=== PATIENT | male | born 1960 | race Caucasian/White ===

== ENCOUNTER → 2016-09-13 | Outpatient (CLI) | payer BC ==
[~2016-09-13] MED LIST: ACET-1138 PO; ASPEC81 PO; ATOR-26 PO; CIPR-255 PO; CLB200 PO; IRBE1TAB50 PO; MBC75; METR500T PO; MULT-845 PO; OMEG500C2 PO; ONDA4TAB10 SL; OXYSR10 PO; PRLSR20 PO; RXC5 PO
[2016-09-13 16:59] LABS: BLOOD UREA NITROGEN 17 mg/dl (7-18); BUN/CREATININE RATIO 20.3 (10-20); CREATININE 0.82 mg/dl (0.60-1.40)
[2016-09-13 19:13] LABS: LYME DISEASE AB IGG NEG (NEG); LYME DISEASE AB IGM NEG (NEG)
== END | disposition home or self-care (01) ==
LOC: C.LABBFT 15:46
PROVIDERS: ATTEND Urology
DX: R31.9 Hematuria, unspecified (principal); N28.9 Disorder of kidney and ureter, unspecified; T14.8 Other injury of unspecified body region; W57.XXXA Bitten or stung by nonvenomous insect and other nonvenomous arthropods, initial encounter

== ENCOUNTER → 2016-09-24 | Outpatient (CLI) | payer BC ==
[~2016-09-24] MED LIST changes: +OPTIRAY 320 IV PRN
--- NOTE | 2016-09-24 16:24 | DIAGNOSTIC IMAGING REPORT ---
ABDOMEN AND PELVIS CT EXAMINATION PRE AND POST INTRAVENOUS CONTRAST CT DOSE: 2134.12 mGycm HISTORY: Renal lesion C67.9 Bladder [id number] Renal lesion urogram-delayed imaging TECHNIQUE: Multiaxial CT images of the abdomen and pelvis were performed pre and post intravenous contrast enhancement. COMPARISON STUDY: None. FINDINGS: Lung bases remain clear. Hepatic cysts are stable. Pancreas and right kidney appear unremarkable. The potential filling defect upper pole left kidney appears to be unchanged. Reconstructed images as well as delayed images suggest this potentially relates to a compound calyx with interposed renal parenchyma. Enhancement characteristics appear generally uniform. There is been no change in size of this is compared to the prior study with maximum current dimensions again unchanged 6 mm. There is no significant abdominal or pelvic adenopathy. Bladder is midline. There are no significant filling defects. IMPRESSION: 1. No major change from the prior study. 2. Small filling defect versus compound calyx is stable with no interval change. Reconstructed images in multiple projections suggest this potentially relates to an anatomic variation and compound calyx 3. Remainder the study remain stable and unchanged. There are no new or interval findings. 4. Repeat study in 9-12 months is suggested, or as clinically indicated.. Electronically signed by: Nura Hobbs M.D. 09/24/2016 4:23 PM Dictated Date/Time: 09/24/2016 4:15 PM
== END | disposition home or self-care (01) ==
LOC: C.CTS 15:31
PROVIDERS: ATTEND Urology
DX: C67.9 Malignant neoplasm of bladder, unspecified (principal); N28.9 Disorder of kidney and ureter, unspecified

== ENCOUNTER 2017-01-01 12:30 | Emergency (ER) | payer BC ==
[~2017-01-01] VITALS: Ht 175.3 cm; Wt 112.9 kg
[~2017-01-01 12:30] MED LIST changes: -CIPR-255 PO; -MBC75; -METR500T PO; -ONDA4TAB10 SL; -OPTIRAY 320 IV PRN
[2017-01-01 12:36] VITALS: TEMP 36.8; Ht 175.3 cm; Wt 112.9 kg
[2017-01-01] MEDS ORDERED: SODIUM CHLORIDE 0.9% 1000ML 1,000 ML IV STA (13:24)
[2017-01-01] MEDS ORDERED: MoRPHine SULFATE 4 MG/ML 1 ML CARP\\VIAL IV STA (13:24)
[2017-01-01] MEDS ORDERED: ONDANSETRON INJ 2 MG/ML 2 ML VIAL IV STA (13:24)
--- NOTE | 2017-01-01 13:24 | EMERGENCY ROOM VISIT NOTE ---
History Report prepared by Kalina: Marcos Vera Under the Supervision of: Dr. Robert Allison M.D. First contact with patient: 12:48 Chief Complaint: ABDOMINAL PAIN Stated Complaint: PAIN IN LOWER SIDE Nursing Triage Summary: Left sided abd pain. Nausea. Had a fever last evening and diarrhea this a.m. See orange call in note. History of Present Illness The patient is a 56 year old white male with a past medical history of HTN, HLD , arthritis, knee replacement, splenectomy, and umbilical hernia who presents to the ED with a cc of intermittent sharp LLQ abdominal pain beginning last night. Positive fevers of 99, chills, nausea, and diarrhea. Negative penis pain , scrotum pain, hematochezia, urinary symptoms, vomiting, cough, congestion, alcohol use, tobacco use, or drug use. The pain is worsened with standing, and it is improved with laying and sitting down. He states the pain started last night after golfing. He had a BM this morning. Source of History: patient Onset: last night Position: abdomen (LLQ) Quality: sharp Timing: intermittent Modifying Factors (Worsening): other (standing) Modifying Factors (Relieving): other (sitting or laying down) Associated Symptoms: + fevers, + chills, + nausea, + diarrhea, No cough, No vomiting, No hematochezia, No urinary symptoms Review of Systems See HPI for pertinent positives and negatives. A total of ten systems were reviewed and were otherwise negative. Past Medical & Surgical Medical Problems: (1) Arthritis of left knee (2) Diverticulitis (3) DJD (degenerative joint disease) (4) High cholesterol (5) Pneumonia Surgical Problems: (1) H/O splenectomy Family History Heart disease Social History Smoking Status: Never Smoker Marital Status: Housing Status: lives with family Occupation Status: employed Current/Historical Medications Scheduled Acetaminophen (Tylenol Extra Strength), 1,000 MG PO Q8H Atorvastatin (Lipitor), 80 MG PO QPM Ciprofloxacin Hcl (Cipro), 500 MG PO BID Irbesartan (Irbesartan), 300 MG PO QAM Metronidazole (Flagyl), 500 MG PO TID Multiple Vitamins W/ Minerals (Centrum Silver Adult 50+), 1 TAB PO QAM [place]-3 Fatty Acids (Fish Oil), 1,200 MG PO QAM Omeprazole (Prilosec), 20 MG PO QAM Ondasetron Odt (Zofran Odt), 4 MG SL Q6H Miscellaneous Medications Meloxicam (Meloxicam), 10 MG Allergies Coded Allergies: No Known Allergies (Verified , 01/01/17) Physical Exam Vital Signs Date Time Temp Pulse Resp B/P (MAP) Pulse Ox O2 Delivery O2 Flow Rate FiO2 01/01/17 16:29 88 18 132/89 98 01/01/17 14:33 94 16 144/82 98 Room Air 01/01/17 12:36 36.8 105 18 128/84 95 Room Air Physical Exam GENERAL: Awake, alert, well-appearing, NAD. Obese HENT: Normocephalic, atraumatic. EYES: Normal conjunctiva. Sclera non-icteric. NECK: Supple. No nuchal rigidity. FROM. RESPIRATORY: CTAB, no rhonchi, wheezing, crackles CARDIAC: RRR, no MRG ABDOMEN: LLQ TTP without guarding or rebound. No obvious bulge from abdomen. Soft, ND, BS+ MSK: No CVA TTP. No reproducible hip, thigh, or knee pain. No chest wall TTP, no LE edema : No penile pain. Mild left testicular pain w/o masses, bulges, swelling, edema, erythema, or calor. NEURO: Negative straight leg raise in on the left side. GCS 15, CN 2-12 intact, moves all 4s on command SKIN: No rash or jaundice noted. Medical Decision & Procedures ER Provider Diagnostic Interpretation: Radiology results as stated below per my review and radiologist interpretation: ABD/PELVIS IV CONTRAST ONLY CT DOSE: 1369.85 mGy.cm HISTORY: Pain LLQ pain, prior splenectomy/umbilical hernia TECHNIQUE: Multiaxial CT images of the abdomen and pelvis were performed following the use of intravenous contrast. A dose lowering technique was utilized adhering to the principles of ALARA. COMPARISON STUDY: 09/24/2016 FINDINGS: The lung bases are clear. The liver, spleen, gallbladder, pancreas, kidneys, and adrenal glands are within normal limits. No bowel wall thickening or obstruction. The pelvic organs are unremarkable. No suspicious lytic or blastic osseous lesions. 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 No further follow-up is felt to be indicated. Several small hepatic cysts are unchanged. Bowel pattern is nonobstructive. Small periumbilical hernia possibly containing a small nonobstructive adhesion. Bladder is midline. No adenopathy within the abdomen and pelvis or inguinal region. No evidence for abscess collection or obstruction. Small component of acute diverticulitis juncture descending and proximal sigmoid colon. IMPRESSION: Stable exam with no change in the prior study. 2. 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 3. Several small stable hepatic cysts. 4. No new, progressive, or interval finding. 5. Note is made of a minimal component of low-grade diverticulitis juncture descending and sigmoid colonic regions. Mild pericolonic infiltrative change. No evidence for abscess collection or obstruction. The above report was generated using voice recognition software. It may contain grammatical, syntax or spelling errors. Electronically signed by: Nura Hobbs M.D. 01/01/2017 3:00 PM Dictated Date/Time: 01/01/2017 2:52 PM Laboratory Results 01/01/17 12:50 Red Blood Count 5.49, Mean Corpuscular Volume 91.3, Mean Corpuscular Hemoglobin 32.2, Mean Corpuscular Hemoglobin Concent 35.3, Mean Platelet Volume 9.3, Neutrophils (%) (Auto) 58.7, Lymphocytes (%) (Auto) 24.7, Monocytes (%) (Auto) 15.0, Eosinophils (%) (Auto) 0.7, Basophils (%) (Auto) 0.3, Neutrophils # (Auto ) 8.65, Lymphocytes # (Auto) 3.64, Monocytes # (Auto) 2.21, Eosinophils # (Auto ) 0.10, Basophils # (Auto) 0.04 01/01/17 12:50 Test 01/01/17 12:50 01/01/17 14:55 White Blood Count 14.73 K/uL (4.8-10.8) Red Blood Count 5.49 M/uL (4.7-6.1) Hemoglobin 17.7 g/dL (14.0-18.0) Hematocrit 50.1 % (42-52) Mean Corpuscular Volume 91.3 fL (80-100) Mean Corpuscular Hemoglobin 32.2 pg (25-34) Mean Corpuscular Hemoglobin Concent 35.3 g/dl (32-36) Platelet Count 318 K/uL (130-400) Mean Platelet Volume 9.3 fL (7.4-10.4) Neutrophils (%) (Auto) 58.7 % Lymphocytes (%) (Auto) 24.7 % Monocytes (%) (Auto) 15.0 % Eosinophils (%) (Auto) 0.7 % Basophils (%) (Auto) 0.3 % Neutrophils # (Auto) 8.65 K/uL (1.4-6.5) Lymphocytes # (Auto) 3.64 K/uL (1.2-3.4) Monocytes # (Auto) 2.21 K/uL (0.11-0.59) Eosinophils # (Auto) 0.10 K/uL (0-0.5) Basophils # (Auto) 0.04 K/uL (0-0.2) RDW Standard Deviation 48.5 fL (36.4-46.3) RDW Coefficient of Variation 14.3 % (11.5-14.5) Immature Granulocyte % (Auto) 0.6 % Immature Granulocyte # (Auto) 0.09 K/uL (0.00-0.02) Anion Gap 7.0 mmol/L (3-11) Est Creatinine Clear Calc Drug Dose 129.6 ml/min Estimated GFR () 115.9 Estimated GFR (Non- 100.0 BUN/Creatinine Ratio 18.7 (10-20) Calcium Level 9.2 mg/dl (8.5-10.1) Total Bilirubin 1.2 mg/dl (0.2-1) Direct Bilirubin 0.2 mg/dl (0-0.2) Aspartate Amino Transf (AST/SGOT) 22 U/L (15-37) Alanine Aminotransferase (ALT/SGPT) 46 U/L (12-78) Alkaline Phosphatase 148 U/L (45-117) Total Protein 7.7 gm/dl (6.4-8.2) Albumin 3.8 gm/dl (3.4-5.0) Lipase 143 U/L (73-393) Urine Color YELLOW Urine Appearance CLEAR (CLEAR) Urine pH 7.5 (4.5-7.5) Urine Specific [place] 1.036 (1.000-1.030) Urine Protein NEG (NEG) Urine Glucose (UA) NEG (NEG) Urine Ketones NEG (NEG) Urine Occult Blood NEG (NEG) Urine Nitrite NEG (NEG) Urine Bilirubin NEG (NEG) Urine Urobilinogen NEG (NEG) Urine Leukocyte Esterase NEG (NEG) Laboratory results reviewed by me Medications Administered Medications (Trade) Dose Ordered Sig/Sal Route Start Time Stop Time Status Last Admin Dose Admin Sodium Chloride 1,000 ml @ 999 mls/hr Q1H1M STAT IV 01/01/17 13:24 01/01/17 14:24 DC 01/01/17 13:46 999 MLS/HR Metronidazole (Flagyl Tab) 500 mg NOW STAT PO 01/01/17 15:16 01/01/17 15:18 DC 01/01/17 16:17 500 MG Ciprofloxacin (Cipro Tab) 500 mg NOW STAT PO 01/01/17 15:16 01/01/17 15:18 DC 01/01/17 16:17 500 MG ED Course 1310: The patient was evaluated in room B6. A complete history and physical exam was performed. 1522: I reevaluated the patient. Discussed results and discharge instructions: He verbalized understanding and agreement. The patient is ready for discharge. Medical Decision The patient is a 56 year old white male with a past medical history of HTN, HLD , arthritis, knee replacement, splenectomy, and umbilical hernia who presents to the ED with a cc of intermittent sharp LLQ abdominal pain beginning last night. Positive fevers of 99, chills, nausea, and diarrhea. Negative penis pain , scrotum pain, hematochezia, urinary symptoms, vomiting, cough, congestion, alcohol use, tobacco use, or drug use. Differential diagnoses include: hernia, incarcerated bowel, bowel obstruction, diverticulitis, UTI, and orchitis. Patient was seen and evaluated at the bedside. Patient was complaining of left lower quadrant pain. Patient did have prior history of umbilical hernia as well as a splenectomy status post fall and splenic injury. Patient had been having bowel movements and denies blood in his stool. Patient had lab work in addition to CT of the abdomen and pelvis to further evaluate for possible hernia versus diverticulitis. Patient did not have any evidence of hernia or incarcerated bowel. Patient did have concern for low-grade diverticulitis. Patient UA was negative. Patient did have a mild leukocytosis of 14. Patient vital signs stable afebrile and tolerating by mouth. Patient was deemed as a suitable patient for outpatient therapy. Patient was given by mouth antibiotics which she tolerated without issue. Patient was given strict follow- up, discharge, TURP cautious. Patient agreed with plan of care and patient was discharged home. Medication Reconcilliation Current Medication List: was personally reviewed by me Blood Pressure Screening Patient's blood pressure: Elevated blood pressure Blood pressure disposition: Referred to PCP Impression Primary Impression: Diverticulitis Additional Impression: Abdominal pain Scribe Attestation The scribe's documentation has been prepared under my direction and personally reviewed by me in its entirety. I confirm that the note above accurately reflects all work, treatment, procedures, and medical decision making performed by me. Departure Information Dispostion Home / Self-Care Prescriptions Ondasetron Odt (ZOFRAN ODT) 4 Mg Tab 4 MG SL Q6H for Nausea, #6 TAB Prov: Robert Allison M.D. 01/01/17 Metronidazole (FLAGYL) 500 Mg Tab 500 MG PO TID for 7 Days, #21 TAB Prov: Robert Allison M.D. 01/01/17 Ciprofloxacin Hcl (CIPRO) 500 Mg Tab 500 MG PO BID, #14 TAB Prov: Robert Allison M.D. 01/01/17 Referrals Jerry Callejas M.D. (PCP) Forms Call Back Authorization, HOME CARE DOCUMENTATION FORM, IMPORTANT VISIT INFORMATION Patient Instructions Abdominal Pain, Diet High Fiber, Diverticulitis Dc, My [facility] Additional Instructions Please return to the emergency department if you have worsening or recurrent symptoms not amenable to at-home treatment. Please call for a follow-up appointment with her primary care physician. Please take your medications as prescribed. If you have other concerns and/or complaints please feel free to also call your primary care physician's office or return the ED for further evaluation, management, and treatment. Please be advised that taking Flagyl would not allow you to consume alcohol this will cause severe nausea and vomiting do avoid it. Work Instructions Return To Work: 1 day Problem Qualifiers Primary Impression: Diverticulitis Diverticulitis site: large intestine Diverticulitis bleeding: without bleeding Diverticulitis complication: without perforation or abscess Qualified Codes: K57.32 - Diverticulitis of large intestine without perforation or abscess without bleeding Additional Impression: Abdominal pain Abdominal location: left lower quadrant Qualified Codes: R10.32 - Left lower quadrant pain
[2017-01-01] MEDS ORDERED: MBC75 (13:41)
[2017-01-01 14:19] LABS: BASO % 0.3 %; BASO ABS # 0.04 K/uL (0-0.2); COMPLETE YES; EOS % 0.7 %; HEMATOCRIT 50.1 % (42-52); IG% 0.6 %; LYMPH % 24.7 %; LYMPH ABS # 3.64 K/uL (1.2-3.4); MEAN CELL VOLUME 91.3 fL (80-100); MEAN CORPUSCULAR HEMOGLOBIN 32.2 pg (25-34); MEAN CORPUSCULAR HGB CONC 35.3 g/dl (32-36); MEAN PLATELET VOLUME 9.3 fL (7.4-10.4); NEUT % 58.7 %; PLATELET COUNT 318 K/uL (130-400); RED BLOOD COUNT 5.49 M/uL (4.7-6.1); WHITE BLOOD COUNT 14.73 K/uL (4.8-10.8)
[2017-01-01 14:25] LABS: BUN/CREATININE RATIO 18.7 (10-20); CALCIUM 9.2 mg/dl (8.5-10.1); CREATININE 0.77 mg/dl (0.60-1.40); POTASSIUM 4.2 mmol/L (3.5-5.1)
[2017-01-01] MEDS ORDERED: OPTIRAY 320 IV PRN (14:45)
--- NOTE | 2017-01-01 15:02 | DIAGNOSTIC IMAGING REPORT ---
ABD/PELVIS IV CONTRAST ONLY CT DOSE: 1369.85 mGy.cm HISTORY: Pain LLQ pain, prior splenectomy/umbilical hernia TECHNIQUE: Multiaxial CT images of the abdomen and pelvis were performed following the use of intravenous contrast. A dose lowering technique was utilized adhering to the principles of ALARA. COMPARISON STUDY: 09/24/2016 FINDINGS: The lung bases are clear. The liver, spleen, gallbladder, pancreas, kidneys, and adrenal glands are within normal limits. No bowel wall thickening or obstruction. The pelvic organs are unremarkable. No suspicious lytic or blastic osseous lesions. 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 No further follow-up is felt to be indicated. Several small hepatic cysts are unchanged. Bowel pattern is nonobstructive. Small periumbilical hernia possibly containing a small nonobstructive adhesion. Bladder is midline. No adenopathy within the abdomen and pelvis or inguinal region. No evidence for abscess collection or obstruction. Small component of acute diverticulitis juncture descending and proximal sigmoid colon. IMPRESSION: Stable exam with no change in the prior study. 2. 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 3. Several small stable hepatic cysts. 4. No new, progressive, or interval finding. 5. Note is made of a minimal component of low-grade diverticulitis juncture descending and sigmoid colonic regions. Mild pericolonic infiltrative change. No evidence for abscess collection or obstruction. The above report was generated using voice recognition software. It may contain grammatical, syntax or spelling errors. Electronically signed by: Nura Hobbs M.D. 01/01/2017 3:00 PM Dictated Date/Time: 01/01/2017 2:52 PM
[2017-01-01] MEDS ORDERED: METRONIDAZOLE 250 MG TAB PO STA (15:16)
[2017-01-01] MEDS ORDERED: CIPROFLOXACIN 500 MG TAB PO STA (15:16)
[2017-01-01 15:22] LABS: URINE APPEARANCE CLEAR (CLEAR); URINE BILIRUBIN NEG (NEG); URINE COLOR YELLOW; URINE NITRITE NEG (NEG); URINE PH 7.5 (4.5-7.5); URINE SPECIFIC GRAVITY 1.036 (1.000-1.030); UROBILINOGEN NEG (NEG); ZZUR CULT IF INDIC CLEAN CATCH NO
[2017-01-01 15:24] LABS: MANUAL MICROSCOPIC REQUIRED? NO; REVIEW REQ? NO
[2017-01-01] MEDS ORDERED: ONDA4TAB10 SL (15:55)
[2017-01-01] MEDS ORDERED: CIPR-255 PO (15:55)
[2017-01-01] MEDS ORDERED: METR500T PO (15:55)
[2017-01-01 16:29] VITALS: BP 132/89; PULSE 88; O2SAT 98
== END 2017-01-01 16:25 | disposition home or self-care (01) ==
LOC: C.EDB 12:31
DX: K57.92 Diverticulitis of intestine, part unspecified, without perforation or abscess without bleeding (principal); E78.00 Pure hypercholesterolemia, unspecified; I10 Essential (primary) hypertension; E78.5 Hyperlipidemia, unspecified; Z98.890 Other specified postprocedural states; Z79.899 Other long term (current) drug therapy

== ENCOUNTER → 2017-02-18 | Outpatient (CLI) | payer BC ==
[~2017-02-18] MED LIST changes: -ASPEC81 PO; +CIPR-255 PO; -CLB200 PO; +MBC75; +ONDA4TAB10 SL; -OXYSR10 PO; -RXC5 PO
[2017-02-18 12:28] LABS: BASO % 0.5 %; BASO ABS # 0.05 K/uL (0-0.2); COMPLETE YES; EOS % 1.4 %; HEMATOCRIT 49.8 % (42-52); IG% 0.9 %; LYMPH % 33.8 %; LYMPH ABS # 3.76 K/uL (1.2-3.4); MEAN CELL VOLUME 92.2 fL (80-100); MEAN CORPUSCULAR HEMOGLOBIN 31.7 pg (25-34); MEAN CORPUSCULAR HGB CONC 34.3 g/dl (32-36); MEAN PLATELET VOLUME 9.7 fL (7.4-10.4); MONO % 10.7 %; NEUT % 52.7 %; PLATELET COUNT 357 K/uL (130-400); WHITE BLOOD COUNT 11.11 K/uL (4.8-10.8)
[2017-02-18 12:48] LABS: ALT/SGPT 41 U/L (12-78); BLOOD UREA NITROGEN 15 mg/dl (7-18); BUN/CREATININE RATIO 17.5 (10-20); CALCIUM 9.9 mg/dl (8.5-10.1); CARBON DIOXIDE 25 mmol/L (21-32); CHLORIDE 105 mmol/L (98-107); CHOLESTEROL 158 mg/dl (0-200); CREATININE 0.83 mg/dl (0.60-1.40); GLUCOSE 105 mg/dl (70-99); POTASSIUM 4.4 mmol/L (3.5-5.1); SODIUM 139 mmol/L (136-145)
[2017-02-18 12:59] LABS: ALB/GLOB RATIO 1.1 (0.9-2); ALKALINE PHOSPHATASE 134 U/L (45-117); AST/SGOT 20 U/L (15-37); CHOLESTEROL/HDL RATIO 3.5; HDL CHOLESTEROL 45 mg/dl; LDL CHOLESTEROL CALCULATED 73 mg/dl; PROSTATE SPECIFIC ANTIGEN 0.695 ng/ml (0.000-4.000); TRIGLYCERIDES 200 mg/dl (0-150); VERY LOW DENSITY LIPOPROT CALC 40 mg/dl
== END | disposition home or self-care (01) ==
LOC: C.LABBFT 07:28
PROVIDERS: ATTEND Internal Medicine
DX: R73.01 Impaired fasting glucose (principal); R78.5 Finding of other psychotropic drug in blood; Z12.5 Encounter for screening for malignant neoplasm of prostate

== ENCOUNTER → 2017-08-27 | Outpatient (CLI) | payer BC ==
[~2017-08-27] MED LIST changes: -ONDA4TAB10 SL
[2017-08-27 13:17] LABS: HEMOGLOBIN A1C 5.9 % (4.5-5.6)
== END | disposition home or self-care (01) ==
LOC: C.LABBFT 07:14
PROVIDERS: ATTEND Internal Medicine
DX: R73.01 Impaired fasting glucose (principal)

== ENCOUNTER 2019-03-30 05:05 | Inpatient (IN) ==
--- NOTE | 2019-03-10 14:23 | Anesthesiology Consultation ---
Date of Service March 10, 2019 Assessment & Plan (1) Encounter for pre-operative examination: - Awaiting review preop testing (labs, EKG, CXR). - Awaiting surgeon-ordered PCP preop evaluation scheduled 03/16 (Dr. Callejas). Chart Review Chart Review: Patient seen in Pre Admission Testing Teaching & Discussion Pre-Anesthesia Teaching/Discussion Notes: Instructed NPO after midnight before surgery,except medications with 15 cc of water. Medication instructions provided according to the PAT guidelines. History Surgery Operation Date: 03/30/19 10:15 Proposed Procedures p Right Total Knee Arthroplasty - Rex Baker DO Height/Weight Height: 5 ft 9 in Weight: 115.3 kg Allergies Allergy/AdvReac Type Severity Reaction Status Date / Time No Known Allergies Allergy Unknown Verified 03/05/19 09:39 Medications Home Medications Medication Instructions Recorded Confirmed Last Taken Vitamin C 1 tab PO QAM 03/05/19 03/05/19 Unknown acetaminophen [Tylenol Extra 1,000 mg PO Q8H PRN 03/05/19 03/05/19 Unknown Strength] atorvastatin 80 mg PO PM 03/05/19 03/05/19 Unknown irbesartan 300 mg tablet 300 mg PO QAM #90 tab 03/05/19 Unknown meloxicam 7.5 mg PO QAM 03/05/19 03/05/19 Unknown multivitamin with minerals 1 tab PO QAM 03/05/19 03/05/19 Unknown omega 1-ivx-fuo-fish oil [Fish Oil] 1 cap PO QAM 03/05/19 03/05/19 Unknown Past Medical History Medical History Diverticulitis 2016 Bladder cancer s/p surgical resection, no chemo/xrt GERD (gastroesophageal reflux disease) hx Hyperlipidemia Hypertension Obesity Exercise / Class Metabolic Activity II 4-5 Yardwork/Stairs/Walk up hill Past Family History Family History Father Family history of diabetes mellitus Past Surgical History Surgical History H/O splenectomy s/p fall History of arthroscopy R/L KNEES History of colonoscopy History of herniorrhaphy UMBILICAL Hx of bladder cancer tumor resection Past Anesthesia History No Hx of Anesthesia Complications and No Family Hx of Anesthesia Complications History of PONV No Hx of PONV and Hx of Motion Sickness (rare (boats)) Social History Smoking Status: Never smoker Do You Dip or Chew Tobacco: No Hx Alcohol Use: No Hx Substance Use: No Review of Systems Hx reflux. Patient denies chest pain, shortness of breath, dyspnea on exertion, cough, wheezing, palpitations. Physical Exam Vital Signs VITALS BP 114/73 P 94 TEMP 98.1 SP02 95%RA RESP 18 PHYSICAL Full neck and c-spine range of motion. Full TMJ range of motion. TMD 2.5 finger breaths Mallampati Score 3 Dentition: upper partial, several crowns Lungs: clear throughout to auscultation Cardiac: regular rate and rhythm, no murmurs noted Spine: normal Carotid arteries: negative bruit Extremities: no edema Testing Laboratory Results 03/09/19 WBC 9.00 H/H 17.0/49.3 PLATELETS 344 SODIUM 137 POTASSIUM 4.1 CHLORIDE 106 CO2 22 BUN 15 CREATININE 0.80 GLUCOSE 101 HGBA1C 5.9%
--- NOTE | 2019-03-10 14:32 | PAT Medication Instructions ---
Medication Instructions Date of Service March 10, 2019 Home Medications Medication Instructions Recorded irbesartan 300 mg tablet 300 mg PO QAM #90 tab 03/05/19 Vitamin C 1 tab PO QAM acetaminophen [Tylenol Extra Strength] 1,000 mg PO Q8H PRN atorvastatin 80 mg PO PM irbesartan 300 mg tablet 300 mg PO QAM meloxicam 7.5 mg PO QAM multivitamin with minerals 1 tab PO QAM omega 9-htd-fjg-fish oil [Fish Oil] 1 cap PO QAM ASK your surgeon for instructions meloxicam 7.5 mg PO QAM STOP taking 2 weeks before surgery (or as soon as possible if surgery is within 2 weeks) omega 6-gge-ywl-fish oil [Fish Oil] 1 cap PO QAM DO NOT take the morning of surgery Vitamin C 1 tab PO QAM irbesartan 300 mg tablet 300 mg PO QAM multivitamin with minerals 1 tab PO QAM Take morning of surgery With a small sip of water, OTHERWISE NOTHING TO EAT OR DRINK AFTER MIDNIGHT: acetaminophen [Tylenol Extra Strength] 1,000 mg PO Q8H PRN (okay to take up to 4 hours prior to surgery if needed) Take evening before surgery acetaminophen [Tylenol Extra Strength] 1,000 mg PO Q8H PRN (if needed) atorvastatin 80 mg PO PM Other Notes If you have any questions please call us at [phone] or [phone] or [phone] or [phone]
--- NOTE | 2019-03-10 15:04 | XRay Report ---
XR chest Pre-admission PA/Lat CLINICAL HISTORY: pat preoperative evaluation COMPARISON STUDY: 03/02/2014 FINDINGS: The bones soft tissues and hemidiaphragms are normal. The cardiomediastinal silhouette is n ormal. The lungs are clear. The pulmonary vasculature is normal. IMPRESSION: Negative chest. The above report was generated using voice recognition software. It may contain grammatical, syntax or spelling errors. Electronically signed by: Nura Hobbs M.D. 03/10/2019 3:02 PM
[2019-03-10 15:16] LABS: Appearance Urine Clear (Clear); Bilirubin Urine Negative (Negative); Blood Urine Negative (Negative); Color Urine Yellow; Glucose Urine UA Negative (Negative); Ketones Urine Negative (Negative); Leukocyte Esterase Urine Negative (Negative); Nitrite Urine Negative (Negative); Protein Urine Negative (Negative); Specific Gravity Urine 1.017 (1.000-1.030); Urobilinogen Urine Negative (Negative); pH Urine 5.5 (4.5-7.5)
[2019-03-10 15:19] LABS: Partial Thromboplastin Time 27.3 Seconds (21.0-31.0); Prothrombin Time 10.3 Seconds (9.0-12.0)
--- NOTE | 2019-03-28 15:18 | History & Physical Report ---
Date of Service March 28, 2019 Assessment & Plan (1) Degenerative joint disease of knee, right: I have indicated the patient for right total knee replacement. The risks, benefits and complications of surgery were explained to the patient which include but not limited to infection, acute blood loss, DVT/PE, injury to nerves, vessels, bone, soft tissue, arthrofibrosis, chronic pain, failure of the prosthesis, knee dislocation, leg length discrepancy, need for additional surgery, cardiac and pulmonary events and . The patient wished to proceed with surgery and informed consent was obtained at this time. We will plan for ASA BID post-operatively for DVT prophylaxis. Upon discharge the patient will be discharged home with home health services. Appropriate clearances by PCP were obtained. History of Present Illness Chief Complaint: Right knee pain/djd Primary Care Provider: Jerry Callejas MD The patient is a 59 year old male who presents with complaints of severe right knee pain and DJD. The patient has failed outpatient conservative treatments to this point which included NSAIDs, IA corticosteroid injection, home exercise/walking program. The patient's pain and limited function have progressed to the point where they severely hinder their activities of daily living and they no longer tolerate exercise programs. They are requesting to proceed with total knee replacement surgery. Allergies Allergy/AdvReac Type Severity Reaction Status Date / Time metformin AdvReac GI upset Verified 03/30/19 05:45 Home Medications Home Medications Medication Instructions Recorded Confirmed Type acetaminophen [Tylenol Extra 1,000 mg PO Q8H PRN 03/05/19 03/30/19 History Strength] atorvastatin 80 mg PO PM 03/05/19 03/30/19 History irbesartan 300 mg tablet 300 mg PO QAM #90 tab 03/05/19 03/30/19 Rx meloxicam 7.5 mg PO QAM 03/05/19 03/30/19 History multivitamin with minerals 1 tab PO QAM 03/05/19 03/30/19 History omega 2-fxm-zzu-fish oil [Fish Oil] 1 cap PO QAM 03/05/19 03/30/19 History ascorbate calcium (vitamin C) 500 500 mg PO DAILY 03/15/19 03/30/19 History mg tablet Past Med/Surg History Medical History Diverticulitis 2016 Bladder cancer s/p surgical resection, no chemo/xrt GERD (gastroesophageal reflux disease) hx Hyperlipidemia Hypertension Obesity Surgical History H/O splenectomy s/p fall History of arthroscopy R/L KNEES History of colonoscopy History of herniorrhaphy UMBILICAL Hx of bladder cancer tumor resection Family History Father Family history of diabetes mellitus Social History Preferred Language: Citizen Of [place] Communication Ability: Effective Legal Records Clerk Required: No Beliefs That Will Affect Care: None Current Living Situation: Spouse and Family Other Information That Helps Us Care for You: No Feels Safe at Home: Yes Safety Concerns: Feels Safe At This Time Smoking Status: Never smoker Do You Dip or Chew Tobacco: No ; Second Hand Exposure: No ; Hx Alcohol Use: No Hx Substance Use: No Review of Systems Review of Systems: All systems reviewed & are unremarkable except as noted in HPI & below Constitutional: as per Subjective / HPI Physical Exam Physical Exam: RLE NVSI +EHL/FHL/TA/GS SILT grossly, +2 DP pulse, compartments soft NT, limited painful ROM, 3-110 degrees of flexion, +crepitus. Constitutional: WD/WN, vitals as above Eyes: PERRL, conjunctivae normal, anicteric sclerae ENMT: external ear and nose normal, oropharynx normal Neck: trachea midline, no thyromegaly Respiratory: normal respiratory effort, lungs clear to auscultation Cardiovascular: RRR, no murmur, no edema Gastrointestinal (Abdomen): normal bowel sounds, soft, nontender, no hepatosplenomegaly Musculoskeletal: no cyanosis or clubbing, extremities motor strength 5/5 Skin: no rashes, warm and dry Neurologic: patellar DTR's 2+ bilat, sensation intact Psychiatric: A+Ox3, euthymic affect Lymphatic: no cervical or axillary lymphadenopathy Results & Data Diagnostic Findings Multiple views of the knee demonstrates severe tricompartmental DJD with complete loss of the medial joint space. +osteophytes, +sclerosis, +subchondral cysts. Moderate wear of the PFJ, + osteophtyes.
[2019-03-30] MEDS: LR 500ML BOLUS, THEN 15ML/HR IV SCH ×2 (05:56→07:24)
[2019-03-30] MEDS ORDERED: dexAMETHasone 4 MG TAB PO SCH (06:00)
[2019-03-30] MEDS ORDERED: ROPIVACAINE 0.5% HCL/PF 150 MG, BUPIVACAINE 0.5% MPF 30 ML, EPINEPHrine 30MG/30ML (OR U... INFIL SCH (06:00)
[2019-03-30] MEDS ORDERED: CeleBREX 200 MG CAP PO SCH (06:00)
[2019-03-30] MEDS ORDERED: CEFAZOLIN 2000MG 2,000 MG/15 ML SYR IV SCH (06:00)
[2019-03-30] MEDS ORDERED: TRANEXAMIC ACID 1,000 MG **IV Pre-op IV SCH (06:00)
[2019-03-30] MEDS ORDERED: METOCLOPRAMIDE HCL 10 MG TABLET PO SCH (06:00)
[2019-03-30] MEDS ORDERED: GABAPENTIN 600 MG DOSE PO SCH (06:00)
[2019-03-30] MEDS ORDERED: FAMOTIDINE 20 MG TAB PO SCH (06:00)
[2019-03-30] MEDS ORDERED: ACETAMINOPHEN 500 MG TAB PO SCH (06:00)
[2019-03-30] MEDS ORDERED: BUPIVACAINE 0.5 % 5 MG/1 ML PF 10ML VIAL ONE (06:29)
[2019-03-30] MEDS ORDERED: ROPIVACAINE 0.5% 5 MG/ML 30 ML VIAL ONE (06:30)
[2019-03-30] MEDS ORDERED: TRANEXAMIC ACID 1,000 MG **IV Intra-op IV SCH (06:30)
[2019-03-30] MEDS ORDERED: fentaNYL citrate 100 MCG/2 ML VIAL ONE (06:45)
[2019-03-30] MEDS ORDERED: MIDAZOLAM HCL 1 MG/ML 2ML VIAL ONE ×2 (06:45→07:30)
[2019-03-30] MEDS ORDERED: BACITRACIN INJ 50,000 UNIT VIAL ONE (06:55)
[2019-03-30] MEDS ORDERED: ORTHO JOINT ANESTHETIC ONE (06:55)
[2019-03-30] MEDS ORDERED: ONDANSETRON INJ 2 MG/ML 2 ML VIAL IV PRN ×2 (07:19→11:08)
[2019-03-30] MEDS ORDERED: ePHEDrine sulfate 50 MG/ML AMP IV PRN (07:19)
[2019-03-30] MEDS ORDERED: HYDROmorphone INJ 1 MG/ML SYRINGE IV PRN (07:19)
[2019-03-30] MEDS ORDERED: KETOROLAC 30 MG/ML VIAL IV PRN (07:19)
[2019-03-30] MEDS ORDERED: ATROPINE SULFATE 0.1 MG/ML 10ML SYR IV PRN (07:19)
--- NOTE | 2019-03-30 07:31 | History & Physical Bridge Note ---
Date of Service March 30, 2019 History & Physical Bridge Note I have examined the patient, reviewed the History & Physical and in the interval since the performance of the History & Physical I have noted the following changes of clinical significance: no changes noted
[2019-03-30] MEDS ORDERED: ONDANSETRON INJ 2 MG/ML 2 ML VIAL ONE (09:00)
[2019-03-30] MEDS ORDERED: PROPOFOL IV EMULSION 10 MG/ML 20 ML VIAL IV ONE (09:00)
[2019-03-30] MEDS ORDERED: PHENYLEPHRINE 100MCG/ML 5ML SYR ONE (09:00)
[2019-03-30] MEDS ORDERED: PHENYLEPHRINE HCL 10 MG/ML VIAL ONE (09:00)
[2019-03-30] MEDS ORDERED: LIDOCAINE HCL 2% 2 ML VIAL/AMP(20MG/ML) INFIL ONE (09:00)
--- NOTE | 2019-03-30 09:23 | Post Operative Brief Note ---
Immediate Post Op Note v1 Date of Surgery March 30, 2019 Pre & Post Diagnosis Operation Date: 03/30/19 07:45 Pre-Op Diagnosis: RIGHT KNEE OSTEOARTHRITIS Post-Op Diagnosis: RIGHT KNEE OSTEOARTHRITIS I identified the patient and participated in the time-out.: Yes Procedure Operation Date: 03/30/19 07:45 Actual Procedures p Right Total Knee Arthroplasty(Right) - Rex Baker DO Surgeon Rex Baker DO Biology Instructor Kade Phillips Estimated Blood Loss 75 Findings Consistent with Post-Op Diagnosis Fluids 1000 cc LR Specimens proximal tibia, distal femur bone fragments Anesthesia Type Spinal MAC Complications none Disposition Disposition: Recovery Room Overlapping Procedure I was present for: the critical portions of procedure. I was immediately available: during the entire case. Back up surgeon: was not required during procedure.
[2019-03-30] MEDS ORDERED: METOPROLOL TARTRATE 1 MG/ML VIAL IV ONE (09:41)
--- NOTE | 2019-03-30 09:48 | Operative Report ---
Post Operative Report Pre & Post Diagnosis Operation Date: 03/30/19 07:45 Pre-Op Diagnosis: RIGHT KNEE OSTEOARTHRITIS Post-Op Diagnosis: RIGHT KNEE OSTEOARTHRITIS I identified the patient and participated in the time-out.: Yes Procedure Operation Date: 03/30/19 07:45 Actual Procedures p Right Total Knee Arthroplasty(Right) - Rex Baker DO Surgeon Rex Baker DO Brake Tester Kade Phillips Estimated Blood Loss 75 Findings Consistent with Post-Op Diagnosis Fluids 1000 cc LR Specimens Proximal tibia and distal femur bone fragment Anesthesia Type Spinal MAC Complications none Disposition Accompanied Patient To Recovery: No Disposition: Recovery Room Indications The patient is a 59-year-old male presents with long history of severe right knee tricompartmental DJD and failed outpatient conservative treatments including NSAIDs, bracing, injections and home walking/exercise program. The patient's symptoms have progressed to the point where it has been difficult to perform normal activities of daily living. I have indicated the patient for a right total knee arthroplasty, the risks and benefits and complications of the procedure include but are not limited to infection bleeding damage to bone, nerves, vessels, surrounding soft tissue, blood clots, loss of function, leg length discrepancy, dislocation, failure of the components, need for additional surgery and . The patient wished to proceed with surgery at this time and informed consent was obtained. Appropriate clearances were obtained. Description of Procedure COMPONENTS USED: Sukhi persona knee system: Femur size 7, Tibia size F tibial articulating surface 11 PS, Patella 32 mm. Following induction of spinal anesthesia, a tourniquet was applied to the proximal aspect of the thigh and the patient's right leg was prepped and draped in the usual sterile manner. A timeout was performed, patient identified and site brie confirmed. Appropriate pre-operative IV antibiotics were given. The limb was exsanguinated with an Esmarch bandage and tourniquet was inflated to 300 mmHg. A longitudinal midline incision was made over the anterior knee. Subcutaneous tissue was sharply dissected down to fascia. Electrocautery was used for hemostasis. Next a parapatellar arthrotomy was performed. Patella was everted and the knee was flexed. A Bhakta retractor was used to expose the synovium above on the anterior aspect of the femur and removed down to bone. Next, the anterior fat pad was removed to aid in visualization. The medial face of the tibia was cleared of soft tissue first with a Bovie and a webster elevator. This tissue was retracted posteriorly using a blunt Hohmann. Next, the extra-medullary tibial cutting guide was placed to the anterior aspect of the tibia. The tibia resection level was set taking 2mm from the defective tibial condyle. Resection depth was once again confirmed with ariana wing. The medial and lateral collateral ligament was protected with two Hohmann retractors. The tibia guide was removed and proximal tibial bone fragment removed utilizing straight osteotome, electrocautery and Franca. Next, the distal femur intramedullary canal was accessed utilizing the step drill. The intramedullary distal femur cutting guide was placed into the canal and pinned into place. The distal femur was cut on the 5 degree +0 setting. Next the cutting guide was removed and the femur was sized. Care was taken to ensure appropriate terminal clerk all rotation and 3 degree holes were drilled. A size 7 4-in-1 cutting block was placed on the distal end of the femur and secured into place with two short headed screws. Two bent Hohmann retractors were placed to protect the medial and lateral collateral ligaments. The oscillating saw was used to cut anterior, posterior, anterior chamfer and posterior chamfer. The four and one cutting block was removed and bone fragments excised. Laminar access control officer was placed laterally and the ACL and PCL were removed followed by the medial meniscus and posterior medial osteophytes. Aquamantys was utilized for any posterior medial bleeders and Orthomix injected into the posterior medial capsule. A laminar access control officer was then placed in the medial compartment and the lateral meniscus and posterior osteophytes were removed. Aquamantys was utilized for any posterior lateral bleeders and Orthomix injected into the posterior lateral capsule. Next, drop nieves and spacer block were placed with the leg in flexion and e xtension to assess alignment and flexion/extension gaps. Next, the proximal tibia was assessed and two bent Hohmans were placed medial and lateral to aid in visualization. The appropriate tibia size and rotation was selected and a size F tibial plate was pinned into place with appropriate rotation. Preparation of the tibia was completed utilizing the matching tibial drill and broach. I then turned my attention back to the distal femur in a trial femoral component was impacted into place. Appropriate femoral width was assessed and selected. Next the femur PS box cut guide was placed and cut made with the reciprocal saw and the PS box provisional placed. A trial size 10 PS tibia articular tray was placed and varus-valgus balance assessed in 0 degrees of extension and 30, 60 and 90 degrees of flexion. A final tibial articular surface size 11 PS was chosen. Assess was gained to the patella and caliper utilized to measure width. The patella reamer was utilized and remaining bone removed with oscillating saw. A size 32 patella button was selected and the patella pegs drilled. Trial patella button was placed and tracking was assessed. The knee was found to be well balanced, well aligned with excellent patella tracking. The trials were removed and final components were obtained and assembled. The knee was irrigated copiously with sterile saline solution mixed with bacitracin. Access to the proximal tibia was once again obtained utilizing to the Hohmans and the proximal tibia and distal femur were dried with lap sponges. The final components were cemented into place and all excess cement was removed. A trial tibial articular surface was placed while cemented hardened. Knee stability was once again assessed and the final component inserted. A Betadine soak was performed. After 3 minutes, the hip was once more irrigated with copious sterile saline solution with bacitracin. The knee was injected with the remaining Orthomix which includes a combination of Ropivicaine 0.5% 150mg, Bupivicaine 0.5%/Epinephrine 1:200,000 30ml, Toradol 30mg, Dexamethasone 4mg, Ketamine 10mg, Clonidine 100mcg and NSS 30ml solution. The capsulotomy was closed with #1 Vicryl followed by subcutaneous closure with 2-0 Vicryl suture and a 3-0 V-lock suture. Skin closure was performed using Prineo dressing followed by Sj, 4 x 4s and malinda wrap. Tourniquet was deflated at 101 minutes. The patient tolerated the procedure well and was taken to the PACU in stable condition. Due to the complex nature of the procedure, the entire surgery was performed with the operational assistance of Kade Phillips PA-C. The lpn or medical assistant, under direct supervision, was involved in the actual performance of all aspects of the surgical procedure including patient positioning, hemostasis, tissue retraction, instrument management and wound closure. I attest to the content of the Intraoperative Record and any orders documented therein. Any exceptions are noted below.
--- NOTE | 2019-03-30 10:20 | XRay Report ---
XR knee RT 1 or 2V routine HISTORY: 59 years-old Male Surgical Post Op right knee total joint arthroplasty COMPARISON: None available TECHNIQUE: 2 views of the right knee FINDINGS: Right knee total joint arthroplasty and patella resurfacing. Expected postsurgical soft tissue swelli ng and deep tissue air is noted with surgical drainage catheter. Satisfactory alignment without acute fracture or dislocation or opaque foreign body. IMPRESSION: Satisfactory alignment of the right knee total joint arthroplasty. The above report was generated using voice recognition software. It may contain grammatical, syntax o r spelling errors. Electronically signed by: Reddy Strickland M.D. 03/30/2019 10:19 AM
[2019-03-30] MEDS ORDERED: BISACODYL 10 MG SUPP PR PRN (11:08)
[2019-03-30] MEDS ORDERED: HYDROmorphone INJ 0.5 MG/0.5 ML SYR IV PRN (11:08)
[2019-03-30] MEDS ORDERED: MAGNESIUM HYDROXIDE SUSP 30 ML UDC PO PRN (11:08)
[2019-03-30] MEDS ORDERED: NALOXONE HCL 0.4 MG/1 ML VIAL/CARP IV PRN (11:08)
[2019-03-30] MEDS ORDERED: METOCLOPRAMIDE HCL INJ 5 MG/ML 2 ML VIAL IV PRN (11:08)
--- NOTE | 2019-03-30 11:13 | Anesthesiology Progress Note ---
Date of Service March 30, 2019 Anesthesia Post Procedure Vital Signs Vital Signs: Temp Pulse Pulse Pulse Resp BP BP 03/30/19 10:45 36.8 C 98 H 18 124/80 03/30/19 10:30 36.9 C 99 H 16 113/65 03/30/19 10:20 100 H 18 115/67 03/30/19 10:10 101 H 16 110/67 03/30/19 10:01 36.9 C 106 H 16 106/56 L 03/30/19 05:35 36.9 C 95 H 20 172/96 H Pulse Ox 03/30/19 10:45 93 03/30/19 10:30 95 03/30/19 10:20 95 03/30/19 10:10 96 03/30/19 10:01 92 03/30/19 05:35 97 Transfer of Care Handoff Completed per policy Notes Mental Status: alert / awake / arousable Patient Amnestic to Procedure: Yes Nausea / Vomiting: adequately controlled Pain: adequately controlled Airway Patency, RR, SpO2: stable & adequate BP & HR: stable & adequate Hydration State: stable & adequate Neuraxial Anesthesia: was administered and sensory block is resolving Anesthetic Complications: no major complications apparent
[2019-03-30] MEDS: KETOROLAC TROMETHAMINE 15 MG/ML VIAL IV SCH ×3 (12:39→23:31)
[2019-03-30] MEDS: SODIUM CHLORIDE 0.9% 1000ML 1,000 ML IV SCH ×2 (12:39→22:14)
[2019-03-30] MEDS: ACETAMINOPHEN 500 MG TAB PO SCH ×2 (13:42→21:33)
[2019-03-30] MEDS: CEFAZOLIN 2000MG 2,000 MG/15 ML SYR IV SCH ×2 (15:53→23:31)
--- NOTE | 2019-03-30 19:00 | Orthopedic Progress Note ---
Date of Service March 30, 2019 Assessment & Plan (1) Degenerative joint disease of knee, right: s/p Right TKA -ancef x 24 -DVT ppx: SCDs, TEDs, ASA BID -WBAT RLE -PT/OT -PO XR demonstrates a well aligned well fixed prothesis without fracture/dislocation -am labs -DC planning Subjective Post Operative Progress Note Patient seen sitting up in bed, comfortable, denies complaints, pain well controlled, no acute issues. Review of Systems Review of Systems: All systems reviewed & are unremarkable except as noted in HPI & below Constitutional: as per Subjective / HPI Physical Exam Physical Exam: RLE NVSI +EHL/FHL/TA/GS SILT grossly, +2 DP pulse, compartments soft NT, dressing cdi. Constitutional: WD/WN, vitals as above Results & Data Vital Signs (Past 12 Hours) Vital Signs Temp Pulse Pulse Pulse Resp BP Pulse Ox 03/30/19 15:07 36.8 C 99 H 16 120/69 92 03/30/19 14:06 36.8 C 102 H 16 115/70 93 03/30/19 12:47 93 H 16 116/78 95 03/30/19 11:45 91 H 18 117/76 96 03/30/19 11:18 92 H 16 116/78 95 03/30/19 10:45 36.8 C 98 H 18 124/80 93 03/30/19 10:30 36.9 C 99 H 16 113/65 95 03/30/19 10:20 100 H 18 115/67 95 03/30/19 10:10 101 H 16 110/67 96 03/30/19 10:01 36.9 C 106 H 16 106/56 L 92
[2019-03-30] MEDS: CeleBREX 200 MG CAP PO SCH (19:28)
[2019-03-30] MEDS: OXYCODONE HCL IR 5 MG TAB (IMMEDIATE RELEASE) PO PRN (19:32)
[2019-03-30] MEDS: ASPIRIN 325 MG ECTAB PO SCH (20:39)
[2019-03-30] MEDS: DOCUSATE SODIUM 100 MG CAP PO SCH (20:41)
[2019-03-30] MEDS ORDERED: ATORVASTATIN 40 MG TAB PO SCH (21:00)
[2019-03-30] MEDS ORDERED: SENNA 8.6 MG TAB PO SCH (21:00)
[2019-03-31] MEDS: KETOROLAC TROMETHAMINE 15 MG/ML VIAL IV SCH ×2 (05:10→11:34)
[2019-03-31] MEDS: ACETAMINOPHEN 500 MG TAB PO SCH ×2 (05:10→13:16)
[2019-03-31 05:11] LABS: Hematocrit (blood only) 43.7 % (42-52); Hemoglobin 14.9 g/dL (14.0-18.0); Mean Corpuscular Hemoglobin 31.8 pg (25-34); Mean Corpuscular Hgb Conc 34.1 g/dL (32-36); Mean Corpuscular Volume 93.2 fL (80-100); Mean Platelet Volume 9.5 fL (7.4-10.4); Platelet Count 302 K/uL (130-400); RDW Standard Deviation 47.5 fL (36.4-46.3); Red Blood Count 4.69 M/uL (4.7-6.1); White Blood Count 22.98 K/uL (4.8-10.8)
[2019-03-31 06:00] LABS: BUN Creatinine Ratio 20.1 (10-20); Calcium 9.2 mg/dl (8.5-10.1); Creatinine Clr Calc Pharmacy 91.9 ml/min; Est GFR (African American) 87.4; Est GFR (Non-African American) 75.4; Potassium 4.3 mmol/L (3.5-5.1)
[2019-03-31] MEDS: DOCUSATE SODIUM 100 MG CAP PO SCH (08:35)
[2019-03-31] MEDS: ASPIRIN 325 MG ECTAB PO SCH (08:35)
[2019-03-31] MEDS: CeleBREX 200 MG CAP PO SCH (08:35)
--- NOTE | 2019-03-31 08:35 | Anesthesiology Progress Note ---
Date of Service March 31, 2019 Anesthesia Post Procedure Vital Signs Vital Signs: Temp Pulse Pulse Pulse Pulse Resp BP 03/31/19 07:49 36.6 C 89 16 138/64 03/31/19 03:18 36.7 C 97 H 17 03/30/19 23:45 36.8 C 98 H 17 03/30/19 19:44 36.9 C 103 H 16 03/30/19 15:07 36.8 C 99 H 16 03/30/19 14:06 36.8 C 102 H 16 03/30/19 12:47 93 H 16 03/30/19 11:45 91 H 18 03/30/19 11:18 92 H 16 03/30/19 10:45 36.8 C 98 H 18 03/30/19 10:30 36.9 C 99 H 16 03/30/19 10:20 100 H 18 03/30/19 10:10 101 H 16 03/30/19 10:01 36.9 C 106 H 16 BP Pulse Ox 03/31/19 07:49 97 03/31/19 03:18 121/71 93 03/30/19 23:45 108/65 93 03/30/19 19:44 112/68 94 03/30/19 15:07 120/69 92 03/30/19 14:06 115/70 93 03/30/19 12:47 116/78 95 03/30/19 11:45 117/76 96 03/30/19 11:18 116/78 95 03/30/19 10:45 124/80 93 03/30/19 10:30 113/65 95 03/30/19 10:20 115/67 95 03/30/19 10:10 110/67 96 03/30/19 10:01 106/56 L 92 Pain Intensity Right Knee: Pain Intensity: 1 Notes Mental Status: alert / awake / arousable Patient Amnestic to Procedure: Yes Nausea / Vomiting: adequately controlled Pain: adequately controlled Airway Patency, RR, SpO2: stable & adequate BP & HR: stable & adequate Hydration State: stable & adequate Neuraxial Anesthesia: was administered and sensory block resolved Anesthetic Complications: no major complications apparent
[2019-03-31] MEDS: OXYCODONE HCL IR 5 MG TAB (IMMEDIATE RELEASE) PO PRN (08:36)
[2019-03-31] MEDS ORDERED: MULTIVITAMIN TAB PO SCH (09:00)
[2019-03-31] MEDS ORDERED: IRBESARTAN 150 MG TAB PO SCH (09:00)
--- NOTE | 2019-03-31 10:43 | Orthopedic Progress Note ---
Date of Service March 31, 2019 Assessment & Plan (1) Degenerative joint disease of knee, right: s/p Right TKA POD#1 -ancef x 24 -DVT ppx: SCDs, TEDs, ASA BID -WBAT RLE -PT/OT -PO XR demonstrates a well aligned well fixed prothesis without fracture/dislocation -am labs -DC planning - home with HH Subjective Post Operative Progress Note Patient seen sitting in chair at bedside, comfortable, denies complaints, pain well controlled, no acute issues. Denies F/C/N/V/SOP/CP Review of Systems Review of Systems: All systems reviewed & are unremarkable except as noted in HPI & below Constitutional: as per Subjective / HPI Physical Exam Physical Exam: RLE NVSI +EHL/FHL/TA/GS SILT grossly, +2 DP pulse, compartments soft NT, dressing cdi. Constitutional: WD/WN, vitals as above Results & Data Vital Signs (Past 12 Hours) Vital Signs Temp Pulse Pulse Pulse Pulse Resp BP 03/31/19 10:19 36.6 C 89 97 H 92 H 103 H 16 138/64 03/31/19 07:49 36.6 C 89 16 138/64 03/31/19 03:18 36.7 C 97 H 17 03/30/19 23:45 36.8 C 98 H 17 BP Pulse Ox 03/31/19 10:19 121/71 97 03/31/19 07:49 97 03/31/19 03:18 121/71 93 03/30/19 23:45 108/65 93
--- NOTE | 2019-04-01 23:01 | Discharge Summary ---
Date of Service April 01, 2019 Admission HPI Per Admitting Provider The patient is a 59 year old male who presents with complaints of severe right knee pain and DJD. The patient has failed outpatient conservative treatments to this point which included NSAIDs, IA corticosteroid injection, home exercise/walking program. The patient's pain and limited function have progressed to the point where they severely hinder their activities of daily living and they no longer tolerate exercise programs. They are requesting to proceed with total knee replacement surgery. Principal Diagnosis Right total knee replacement Discharge Exam RLE NVSI +EHL/FHL/TA/GS SILT grossly, +2 DP pulse, compartments soft NT, dressing cdi. Constitutional WD/WN, vitals as above Discharge Data Allergies Allergy/AdvReac Type Severity Reaction Status Date / Time metformin AdvReac GI upset Verified 03/30/19 05:45 Consultations 03/30/19 11:08 Consult Case Management - Discharge Planning Routine Procedures Performed Operation Date: 03/30/19 07:45 Actual Procedures p Right Total Knee Arthroplasty(Right) - Rex Baker DO Ordered Studies 03/30/19 05:00 US - OR guided needle placemen Routine Hospital Course (1) Degenerative joint disease of knee, right: The patient is a 59 -year-old male who presents with long standing history of severe right knee DJD and failed outpatient conservative treatments. The patient's symptoms have progressed to the point where it has been difficult to perform even normal activities of daily living. I indicated the patient for a right total knee arthroplasty, the risks, benefits and complications of the procedure include but not limited to infection, bleeding, damage to bone, nerves, vessels, surrounding soft tissue, may develop blood clots, loss of function, leg length discrepancy, dislocation, failure of the components, loosening of the components, the need for additional surgery and . The patient wished to proceed with surgery at this time and informed consent was obtained. Hospital Course: On 03/30/19 the patient was taken to the operating room, adequate anesthesia administered and underwent a right total knee arthroplasty. The patient tolerated the procedure well and was taken to the PACU in stable condition. Post-operatively the patient was started on a DVT ppx medication and given appropriate IV antibiotics. Consults were placed to physical therapy, occupational therapy and case management. On POD#1, the patient did well overnight and their pain was well controlled. Labs were drawn and the Hgb was 14.9. The patient progressed well with PT. Dressings were changed at this time and the incision was clean, dry and intact. The patients hospital stay was relatively uneventful and they were deemed stable by the orthopedic team and consultants to be discharged home with HH on 03/31/19. Discharge Instructions: Upon discharge the patient may weight bear as tolerates through their operative extremity. They were instructed to keep the incision clean and dry at all times. The patient may shower but should not submerge the incision, avoid bathing, pools and hot tubes. The patient was given a script for pain medication and should take as instructed. The patient was given a script for DVT ppx 325mg ASA BID and should take as directed. The patient was instructed to not drive or travel for long distances until cleared to do so. If the patient develops any symptoms of fevers, chills, nausea, vomiting, increased redness, swelling, pain or drainage from the surgical site, they should notify the office and/or proceed to the nearest emergency room. The patient should follow up in 10-14 days after surgery for their routine post-operative follow-up appointment and should call the office to confirm the date and time. s/p Right TKA POD#1 -ancef x 24 -DVT ppx: SCDs, TEDs, ASA BID -WBAT RLE -PT/OT -PO XR demonstrates a well aligned well fixed prothesis without fracture/dislocation -am labs -DC planning - home with Total Time Total Time Spent Total Time Spent (In Minutes): 30 minutes Total Time Includes: Examination of the Patient, Discharge Planning, Medication Reconciliation and Communication With Other Providers Discharge Plan Discharge Items Patient Disposition: Home - Home Health Services Reason For Visit: RIGHT KNEE OSTEOARTHRITIS Discharge Diagnosis: Right total knee replacement Condition on Discharge: Good Activity: Per Instructions section Lifting: Wait until after follow-up appointment Bathing: Keep incision dry Bathing Comment: No bathing, pools or hot tubs. Sexual Activity: Wait until after follow-up appointment Exercise/Sports: Wait until after follow-up appointment Driving/Machine Use: No driving Weightbearing: Full weightbearing Non-emergency contact: Primary Care Provider and Surgeon Call non-emergency contact if: you have any medication questions, your symptoms worsen, your pain is not controlled, your pain is worsening, your pain is unusual for you, your pain is concerning for you, you have a fever, your temperature is above 101, your wound has increased redness, your wound has increased drainage and your wound pain has increased Follow-up/Referrals: Ra Callejas MD [Primary Care Provider] - Diet: Regular Addtl Attending Provider Instructions: ACTIVITY RECOMMENDATIONS: SELF CARE INSTRUCTIONS AFTER TOTAL KNEE REPLACEMENT A. You may need to continue a physical therapy program after discharge from the hospital. There are several options available to you. Your doctor will assist you in selecting the best one for you. 1. An out-patient facility 2 to 3 times a week for therapy or home therapy. 2. Continue working on all exercises taught to you in the hospital. Your goals should be to increase bending of your knee to 90 degrees and beyond and to fully straighten your knee. B. You may progress at your own pace from walking with a walker or crutches to a cane; then to no assistive devices. C. Make walking a part of your daily routine. Be up as much as comfortable with rest periods throughout the day. Rest with leg elevation is very important. Use the ice wrap frequently for the first 3-4 weeks. D. There are no restrictions on activities. You may ride in a car, shop, participate in syrup blender and all social activities. E. Wear the long elastic stockings (SHON hose) 20 hours a day for 2 weeks after surgery. They can be removed several times a day for laundering and for a bath. F. You may shower, no tub baths until cleared by your doctor. SPECIAL CARE INSTRUCTIONS: VERY IMPORTANT TO READ AND REVIEW A. There are a few signs you need to watch for after you are home. Call [facility] if you notice any of the followin. Increased severe knee pain. Some pain is expected especially when you exercise. 2. Increased swelling in your leg or knee; pain or swelling of the calf muscle in either lower leg. 3. Any fluid drainage from the incision. 4. Shortness of breath or chest pain. B. Please call [facility] at if you have any concerns or questions about your operation or recovery. The doctor or his nurse will return your call promptly. C. You must take antibiotics before dental work, bladder, bowel or other surgery. Your doctor will provide you with a permanent care to carry describing this precaution. IMPORTANT: * REMEMBER TO TAKE ASPIRIN, 325 MG, TWICE DAILY FOR 4 WEEKS UNLESS OTHERWISE DIRECTED. THIS IS YOUR BLOOD THINNER. * HIGH RISK PATIENTS MAY BE PRESCRIBED A STRONGER BLOOD THINNER. THIS WILL BE PROVIDED AT DISCHARGE. * CALL IF INCREASED PAIN, REDNESS, DRAINAGE OR FEVER GREATER THAT 101. * WEAR SHON HOSE 20 HOURS PER DAY FOR 2 WEEKS. *DERMABOND Prineo- This is a mesh tape dressing that is covered with glue. It should remain in place until the incision is properly healed, usually 10-14 days. This dressing is designed to naturally slough off. You may trim the excess mesh tape as it peels off. Incision may be briefly wet in a shower. Dry immediately by blotting with a clean, dry towel. Do not bath or swim until instructed by your doctor. Do not scratch, rub, or pick at the dressing. Do not apply any topical ointments or lotions until dressing is completely removed and/or instructed by your doctor. There may be a small piece of suture material at one end of your incision. Do not pull or trim this. If it is bothersome or catching on clothing, you may cover it with a band-aid. IF INCISION IS LEAKING THROUGH DRESSING, CALL THE OFFICE . FOLLOW UP VISIT: If appointment is not already scheduled: Please call [facility] to make a follow-up appointment for 2 weeks after your surgery at . Pending Studies at Discharge: No Stand-Alone Forms: My [facility], Opioid Pain Management, Smoking Cessation Medications and DC Order Prescriptions: New oxycodone 5 mg tablet 5 mg PO Q6H MDD 6 tabs PRN (Reason: pain) Qty: 30 RF: 0 aspirin, buffered 325 mg tablet 325 mg PO BID Qty: 56 RF: 0 acetaminophen 500 mg tablet 1,000 mg PO QID PRN (Reason: pain) Qty: 90 RF: 0 Senna-Extra 17.2 mg tablet 17.2 mg PO HS PRN (Reason: constipation) Qty: 28 RF: 0 Continued irbesartan 300 mg tablet 300 mg PO QAM Qty: 90 RF: 3 ascorbate calcium (vitamin C) 500 mg tablet 500 mg PO DAILY RF: 0 atorvastatin 80 mg Tablet 80 mg PO PM RF: 0 multivitamin with minerals Tablet 1 tab PO QAM RF: 0 omega 2-uho-gyy-fish oil [Fish Oil] 1,000 mg (120 mg-180 mg) Capsule 1 cap PO QAM RF: 0 Discontinued meloxicam 7.5 mg tablet 7.5 mg PO QAM RF: 0 acetaminophen [Tylenol Extra Strength] 500 mg Tablet 1,000 mg PO Q8H PRN (Reason: Pain) RF: 0 Discharge Orders: Discharge Order (Routine); Ordered 03/31/19 Ordered By: Rex Dowell/Other Patient Handouts: Surgery Prevent DVT After, ED Stockings Shon Admission Data Admit Date/Time: 03/30/19 10:04 Attending Provider: Rex Baker Admit Provider: Rex Baker Primary Care Provider: Ra Callejas Other Interventions: Discharge Summary Assessment (RN) Last Done: 03/31/19 10:19 DC Date/Time DO NOT enter until pt leaves facility: 03/31/19 14:15
== END 2019-03-31 14:15 | disposition home health service (06) | DRG 470 ==
LOC: ASU 05:05 → 3E 10:04